=== PATIENT | female | born 1995 | race Caucasian/White ===

== ENCOUNTER 2019-04-21 10:58 | Emergency (ER) | payer SELFPAY ==
[~2019-04-21] VITALS: Ht 157.5 cm; Wt 74.8 kg
[2019-04-21 11:05] VITALS: BP 134/94
[2019-04-21] MEDS ORDERED: cefTRIAXone SOD 1,000 MG VL IM ONE (12:15)
[2019-04-21] MEDS ORDERED: IBUPROFEN 800 MG TAB PO ONE (12:15)
== END 2019-04-21 13:04 | disposition home or self-care (01) ==
LOC: ER 10:58
DX: K04.7 Periapical abscess without sinus (principal)
CPT/HCPCS: 41800; 96372; 99284; J0696

== ENCOUNTER 2019-04-22 07:51 | Emergency (ER) | payer SELFPAY ==
[~2019-04-22] VITALS: Ht 157.5 cm; Wt 74.8 kg
[2019-04-22 08:05] VITALS: BP 120/73
[2019-04-22] MEDS ORDERED: cefTRIAXone SOD 1,000 MG VL IM ONE (08:45)
== END 2019-04-22 09:12 | disposition home or self-care (01) ==
LOC: ER 07:51
DX: K04.7 Periapical abscess without sinus (principal)
CPT/HCPCS: 96372; 99283; J0696

== ENCOUNTER 2021-06-06 00:10 | Emergency (ER) | payer MEDICAID, OTHER ==
[~2021-06-06] VITALS: Ht 160 cm; Wt 79.4 kg
[2021-06-06] MEDS ORDERED: LIDOCAINE 1%HCL (LOCAL ANESTH) 10 ML MDV ONE (01:44)
[2021-06-06] MEDS ORDERED: LIDOCAINE 1% HCL (LOCAL ANESTH.) INJ 20ML MDV ID ONE (01:45)
[2021-06-06 03:00] VITALS: BP 121/78
== END 2021-06-06 03:56 | disposition home or self-care (01) ==
LOC: ER 00:10 → EDBD 00:10 → ER 03:56
DX: S01.81XA Laceration without foreign body of other part of head, initial encounter (principal); R07.9 Chest pain, unspecified; V43.52XA Car driver injured in collision with other type car in traffic accident, initial encounter; Y93.89 Activity, other specified; Y92.89 Other specified places as the place of occurrence of the external cause; Y99.8 Other external cause status
CPT/HCPCS: 12013; 99282; J2001

== ENCOUNTER 2021-06-17 18:30 | Emergency (ER) | payer MEDICAID ==
[~2021-06-17] VITALS: Ht 160 cm; Wt 77.1 kg
[2021-06-17 23:28] VITALS: BP 122/74
== END 2021-06-17 23:33 | disposition home or self-care (01) ==
LOC: ER 18:32
DX: S01.81XD Laceration without foreign body of other part of head, subsequent encounter (principal); V89.2XXD Person injured in unspecified motor-vehicle accident, traffic, subsequent encounter